=== PATIENT | male | born 1955 | race African-American/Black ===

== ENCOUNTER 2019-08-23 16:52 | Emergency (ER) | payer OTHER ==
[2019-08-23] MEDS ORDERED: Ketorolac Tromethamine 30 MG/ML VIAL ONE (19:08)
--- NOTE | 2019-08-23 19:09 | CT ---
CT CERVICAL SPINE WITH CORONAL AND SAGITTAL REFORMATIONS AND NO IV CONTRAST: HISTORY: Fall, neck pain FINDINGS: No fracture, subluxation or facet malalignment is identified. No prevertebral soft tissue swelling is apparent. The visualized lung apices are unremarkable. IMPRESSION: No CT evidence for fracture or traumatic subluxation.
--- NOTE | 2019-08-23 19:56 | RAD ---
CHEST ONE VIEW: 08/23/19 at 8:03 p.m. HISTORY: Fall. No loss of consciousness. Chest pain FINDINGS: The heart size is normal. The aorta is tortuous. The lungs are well expanded without lobar consolidat ion, pneumothoraces, or pleural effusions. IMPRESSION: No radiographic evidence of acute cardiopulmonary process. POS: OFF
--- NOTE | 2019-08-23 19:57 | RAD ---
LEFT KNEE FOUR VIEWS: 08/23/19 HISTORY: Fall. Left knee pain. FINDINGS/IMPRESSION: No acute fracture or dislocation is seen. POS: OFF
--- NOTE | 2019-08-23 19:58 | RAD ---
LEFT SHOULDER THREE VIEWS: 08/23/19 HISTORY: Fall, left shoulder pain. FINDINGS/IMPRESSION: No acute fracture or dislocation is identified. POS: OFF
--- NOTE | 2019-08-23 19:58 | RAD ---
RIGHT KNEE FOUR VIEWS: 08/23/19 HISTORY: Fall, right knee pain. FINDINGS/IMPRESSION: No acute fracture or dislocation is identified. POS: OFF
[2019-08-23] MEDS ORDERED: Cyclobenzaprine 10 MG TAB ONE (20:04)
== END 2019-08-23 20:18 | disposition home or self-care (01) ==
LOC: ERS 16:52
DX: S16.1XXA Strain of muscle, fascia and tendon at neck level, initial encounter (principal); M25.512 Pain in left shoulder; I10 Essential (primary) hypertension; W18.30XA Fall on same level, unspecified, initial encounter
CPT/HCPCS: 71045; 72125; 96372; J1885

== ENCOUNTER 2022-03-10 10:20 | Outpatient (CLI) | payer MEDICARE, OTHER | END 2022-03-10 10:21 | disposition home or self-care (01) | LOC: BICULT 10:20 | PROVIDERS: ATTEND Physician Assistant Medical | DX: B19.20 Unspecified viral hepatitis C without hepatic coma (principal); K76.89 Other specified diseases of liver; K82.4 Cholesterolosis of gallbladder; I31.3 Pericardial effusion (noninflammatory) | CPT/HCPCS: 76705 ==

== ENCOUNTER 2022-08-26 10:12 | Outpatient (CLI) | payer MEDICARE, OTHER | END 2022-08-26 10:13 | disposition home or self-care (01) | LOC: BICULT 10:12 | PROVIDERS: ATTEND Physician Assistant Medical | DX: K74.60 Unspecified cirrhosis of liver (principal) | CPT/HCPCS: 76705 ==

== ENCOUNTER 2022-10-24 14:05 | Inpatient (IN) | payer MEDICARE, OTHER ==
[2022-10-24 15:25] LABS: #Basophils 0.1 thou/uL (0.0-0.2); #Eosinphils 0.2 thou/uL (0.0-0.7); #Lymphocytes 3.4 thou/uL (1.20-3.40); #Monocytes 0.5 thou/uL (0.11-0.59); #Neutrophils 3.2 thou/uL (1.40-6.50); %Basophils 0.8 % (0.0-1.0); %Eosinophils 2.2 % (0.0-10.0); %Lymphocytes 46.5 % (21.0-51.0); %Monocytes 7.3 % (0.0-10.0); %Neutrophils 43.2 % (42.0-75.0); Hemoglobin 13.5 g/dL (14.0-18.0); Mean Corpuscular HGB CONC 33.5 g/dL (32.0-36.0); Mean Corpuscular Hemoglobin 28.6 pg (27.0-31.0); Mean Corpuscular Volume 85.3 fl (78.0-98.0); Mean Platelet Volume 10.5 fL (7.4-10.4); Platelet Count 132 10x3/uL (130-400); RBC Distribution Width 11.8 % (11.5-14.5); Red Blood Cell (RBC) Count 4.71 mill/uL (4.70-6.10); White Blood Cell (WBC) Count 7.3 10x3/uL (4.8-10.8)
[2022-10-24] MEDS ORDERED: Iopamidol-370 76% 500 ML 1 ML ONE (15:25)
[2022-10-24 15:45] LABS: ALT (SGPT) 12 U/L (8-55); AST (SGOT) 34 U/L (5-34); Albumin 4.3 g/dL (3.4-4.8); Alkaline Phosphatase 82 U/L (40-110); Anion Gap 15 mmol/L (10-20); BUN (Urea Nitrogen) 14 mg/dL (8.4-25.7); Bilirubin, Total 0.5 mg/dL (0.2-1.2); Calc. Creatinine Clearance 0 mL/min (70-130); Calcium 9.2 mg/dL (7.8-10.44); Carbon Dioxide 24 mmol/L (23-31); Chloride 102 mmol/L (98-107); Estimated GFR 70; Globulin 4.4 g/dL (2.4-3.5); Glucose 97 mg/dL (80-115); Potassium 3.6 mmol/L (3.5-5.1); Protein, Total 8.7 g/dL (5.8-8.1); Sodium 137 mmol/L (136-145)
[2022-10-24 15:55] LABS: Platelet Morphology Comment Appears Adequate; RBC Morphology Normal
[2022-10-24 16:12] LABS: CKMB 11.3 ng/mL (0-6.6)
[2022-10-24] MEDS ORDERED: Acetaminophen 500 MG TAB ONE (17:23)
[2022-10-24] MEDS ORDERED: Aspirin Chewable 81 MG TAB ONE (18:47)
[2022-10-24 19:33] LABS: Critical Call Chem Troponin I RESULT DECREASING
[2022-10-24 19:51] LABS: CKMB 10.2 ng/mL (0-6.6)
[2022-10-24 21:21] VITALS: BMI 22.7
[2022-10-24] MEDS: Atorvastatin Calcium 40 MG TAB PO SCH (22:05)
[2022-10-24 22:40] LABS: Critical Call Chem Troponin I RESULT DECREASING
[2022-10-25 05:09] LABS: #Basophils 0.1 thou/uL (0.0-0.2); #Eosinphils 0.2 thou/uL (0.0-0.7); #Lymphocytes 3.5 thou/uL (1.20-3.40); #Monocytes 0.5 thou/uL (0.11-0.59); #Neutrophils 2.7 thou/uL (1.40-6.50); %Basophils 1.9 % (0.0-1.0); %Eosinophils 3.2 % (0.0-10.0); %Lymphocytes 49.4 % (21.0-51.0); %Monocytes 7.5 % (0.0-10.0); %Neutrophils 38.2 % (42.0-75.0); Hemoglobin 12.7 g/dL (14.0-18.0); Mean Corpuscular HGB CONC 33.3 g/dL (32.0-36.0); Mean Corpuscular Hemoglobin 28.4 pg (27.0-31.0); Mean Corpuscular Volume 85.3 fl (78.0-98.0); Mean Platelet Volume 10.7 fL (7.4-10.4); Platelet Count 137 10x3/uL (130-400); RBC Distribution Width 11.8 % (11.5-14.5); Red Blood Cell (RBC) Count 4.47 mill/uL (4.70-6.10); White Blood Cell (WBC) Count 7.1 10x3/uL (4.8-10.8)
[2022-10-25 05:26] LABS: Anion Gap 11 mmol/L (10-20); BUN (Urea Nitrogen) 13 mg/dL (8.4-25.7); Calc. Creatinine Clearance 73 mL/min (70-130); Calcium 8.7 mg/dL (7.8-10.44); Carbon Dioxide 25 mmol/L (23-31); Chloride 107 mmol/L (98-107); Estimated GFR 86; Glucose 94 mg/dL (80-115); Potassium 3.3 mmol/L (3.5-5.1); Sodium 140 mmol/L (136-145)
[2022-10-25] MEDS ORDERED: Lactated Ringer's 1,000 ML IV SCH (08:15)
[2022-10-25] MEDS: NIFEdipine XL 90 MG TAB PO SCH (09:04)
[2022-10-25] MEDS: Aspirin 81 mg Enteric Coated Tablet PO SCH (09:04)
[2022-10-25] MEDS ORDERED: Magnevist 469MG/ML 20 ML VIAL ONE (15:50)
[2022-10-25] MEDS: Atorvastatin Calcium 40 MG TAB PO SCH (20:48)
[2022-10-26 05:20] LABS: Mean Corpuscular HGB CONC 33.8 g/dL (32.0-36.0); Mean Corpuscular Hemoglobin 29.1 pg (27.0-31.0); Mean Corpuscular Volume 86.1 fl (78.0-98.0); Mean Platelet Volume 10.5 fL (7.4-10.4); Platelet Count 124 10x3/uL (130-400); RBC Distribution Width 11.8 % (11.5-14.5); Red Blood Cell (RBC) Count 4.14 mill/uL (4.70-6.10); White Blood Cell (WBC) Count 7.1 10x3/uL (4.8-10.8)
[2022-10-26 05:28] LABS: Hemoglobin A1c 5.4 % (4.0-6.0)
[2022-10-26 05:31] LABS: ALT (SGPT) 11 U/L (8-55); AST (SGOT) 22 U/L (5-34); Albumin 3.9 g/dL (3.4-4.8); Alkaline Phosphatase 67 U/L (40-110); Anion Gap 9 mmol/L (10-20); BUN (Urea Nitrogen) 14 mg/dL (8.4-25.7); Bilirubin, Total 0.6 mg/dL (0.2-1.2); Calc. Creatinine Clearance 67 mL/min (70-130); Calcium 8.5 mg/dL (7.8-10.44); Carbon Dioxide 26 mmol/L (23-31); Cardiac Risk 6.1 (Less than 4.5); Chloride 106 mmol/L (98-107); Cholesterol 230 mg/dl (< 200 Desired); Estimated GFR 77; Globulin 3.7 g/dL (2.4-3.5); Glucose 94 mg/dL (80-115); HDL Cholesterol 38 mg/dL (>60 Neg Risk); LDL Cholesterol, Calculated 172 mg/dL; Potassium 3.3 mmol/L (3.5-5.1); Protein, Total 7.6 g/dL (5.8-8.1); Sodium 138 mmol/L (136-145); Triglycerides 102 mg/dL (Less than 150)
[2022-10-26 06:07] LABS: Eosinophils 2 % (0-10); Lymphocytes 67 % (21-51); MDiff Complete? YES; Monocytes 8 % (0-10); Neutrophil 23 % (42-75)
[2022-10-26] MEDS: Aspirin 81 mg Enteric Coated Tablet PO SCH (08:39)
[2022-10-26] MEDS: NIFEdipine XL 90 MG TAB PO SCH (08:39)
[2022-10-26] MEDS: Atorvastatin Calcium 40 MG TAB PO SCH (20:43)
[2022-10-27] MEDS ORDERED: Nitroglycerin 100MG/250ML BOT 0 ML ONE (06:49)
[2022-10-27] MEDS ORDERED: Verapamil 5 MG/2 ML VIAL ONE (06:49)
[2022-10-27] MEDS ORDERED: Heparin 10,000 UNITS/ 10 ML VIAL ONE (06:49)
[2022-10-27] MEDS ORDERED: Lidocaine 1% PF 5 ML VIAL ONE (06:49)
[2022-10-27 08:33] LABS: Hemoglobin 12.8 g/dL (14.0-18.0); Mean Corpuscular HGB CONC 34.5 g/dL (32.0-36.0); Mean Platelet Volume 10.5 fL (7.4-10.4); Platelet Count 132 10x3/uL (130-400); RBC Distribution Width 11.9 % (11.5-14.5); Red Blood Cell (RBC) Count 4.27 mill/uL (4.70-6.10); White Blood Cell (WBC) Count 5.5 10x3/uL (4.8-10.8)
[2022-10-27 08:36] LABS: Anion Gap 14 mmol/L (10-20); BUN (Urea Nitrogen) 15 mg/dL (8.4-25.7); Calc. Creatinine Clearance 71 mL/min (70-130); Calcium 8.9 mg/dL (7.8-10.44); Carbon Dioxide 23 mmol/L (23-31); Chloride 105 mmol/L (98-107); Estimated GFR 83; Glucose 90 mg/dL (80-115); Potassium 3.7 mmol/L (3.5-5.1); Sodium 138 mmol/L (136-145)
[2022-10-27] MEDS: NIFEdipine XL 60 MG TAB PO SCH (09:12)
[2022-10-27] MEDS: Aspirin 81 mg Enteric Coated Tablet PO SCH (09:12)
[2022-10-27 09:23] LABS: Band 1 % (5-11); Eosinophils 4 % (0-10); Lymphocytes 56 % (21-51); MDiff Complete? YES; Monocytes 7 % (0-10); Neutrophil 31 % (42-75); Platelet Morphology Comment Appears Adequate; Polychromasia SLIGHT = 2-3 cells (100X) (0-2/hpf); RBC Morphology Normal
[2022-10-27 17:18] LABS: Free T4 (Free Thyroxine) 1.05 ng/dL (0.70-1.48)
[2022-10-27 17:27] LABS: Thyroid Stimulating Hormone 1.3652 uIU/mL (0.35-4.94)
[2022-10-27] MEDS: Atorvastatin Calcium 40 MG TAB PO SCH (19:55)
[2022-10-28 05:28] LABS: Anion Gap 12 mmol/L (10-20); BUN (Urea Nitrogen) 15 mg/dL (8.4-25.7); Calc. Creatinine Clearance 71 mL/min (70-130); Calcium 8.8 mg/dL (7.8-10.44); Carbon Dioxide 23 mmol/L (23-31); Chloride 107 mmol/L (98-107); Estimated GFR 82; Glucose 93 mg/dL (80-115); Potassium 3.5 mmol/L (3.5-5.1); Sodium 138 mmol/L (136-145)
[2022-10-28 05:34] LABS: Hemoglobin 12.2 g/dL (14.0-18.0); Mean Corpuscular HGB CONC 33.6 g/dL (32.0-36.0); Mean Corpuscular Hemoglobin 28.8 pg (27.0-31.0); Mean Corpuscular Volume 85.7 fl (78.0-98.0); Mean Platelet Volume 10.4 fL (7.4-10.4); Platelet Count 118 10x3/uL (130-400); RBC Distribution Width 11.7 % (11.5-14.5); Red Blood Cell (RBC) Count 4.22 mill/uL (4.70-6.10); White Blood Cell (WBC) Count 6.4 10x3/uL (4.8-10.8)
[2022-10-28 05:35] LABS: Eosinophils 2 % (0-10); Large Platelets SLIGHT; Lymphocytes 50 % (21-51); MDiff Complete? YES; Monocytes 9 % (0-10); Neutrophil 37 % (42-75); Platelet Morphology Comment Appears Decreased; Reactive Lymphocytes 2 % (0-10)
[2022-10-28] MEDS: NIFEdipine XL 60 MG TAB PO SCH (06:09)
[2022-10-28] MEDS ORDERED: Heparin 10,000 UNITS/ 10 ML VIAL ONE (06:10)
[2022-10-28] MEDS ORDERED: Lidocaine 1% PF 5 ML VIAL ONE (06:10)
[2022-10-28] MEDS ORDERED: Nitroglycerin 100MG/250ML BOT 250 ML ONE (06:10)
[2022-10-28] MEDS ORDERED: Verapamil 5 MG/2 ML VIAL ONE (06:10)
[2022-10-28] MEDS ORDERED: Communication Order-Pharmacy FS SCH (06:45)
[2022-10-28] MEDS ORDERED: Sodium Chloride 0.9% 1,000 ML IV SCH ×2 (06:45→08:00)
[2022-10-28] MEDS ORDERED: Midazolam HCl 2 mg/2 ml Vial ONE (06:54)
[2022-10-28] MEDS ORDERED: FENTANYL 50 MCG/ML 1 ML VIAL ONE (06:54)
[2022-10-28] MEDS ORDERED: Nitroglycerin 0.4 MG TAB (25 Tab Bottle) SL PRN (07:46)
[2022-10-28] MEDS ORDERED: Sodium Chloride 0.9% 200 ML IV PRN (07:46)
[2022-10-28] MEDS ORDERED: Acetaminophen/Codeine 30-300mg Tablet PO PRN ×2 (07:46)
[2022-10-28] MEDS ORDERED: Aspirin 325 mg Enteric Coated Tablet PO SCH (09:00)
[2022-10-28 10:57] LABS: Follicle Stimulating Hormone 3.78 mIU/mL (See Ranges); Luteinizing Hormone 1.97 mIU/mL (See Ranges)
[2022-10-28 11:49] VITALS: BP 121/73; TEMP 98.2
[2022-10-28] MEDS ORDERED: Potassium Chloride 20 MEQ TAB PO SCH (13:30)
== END 2022-10-28 14:52 | disposition home or self-care (01) | DRG 643 ==
LOC: ERS 14:05 → 2SW 18:46
PROVIDERS: ADMIT Family Medicine; ATTEND Internal Medicine
PROC: B2111ZZ Fluoroscopy of Multiple Coronary Arteries using Low Osmolar Contrast (ICD-10-PCS; principal; 2022-10-28)
DX: D35.2 Benign neoplasm of pituitary gland (principal); G93.5 Compression of brain; I21.A1 Myocardial infarction type 2; Z20.822 Contact with and (suspected) exposure to COVID-19; E78.00 Pure hypercholesterolemia, unspecified; I12.9 Hypertensive chronic kidney disease with stage 1 through stage 4 chronic kidney disease, or unspecified chronic kidney disease; N18.2 Chronic kidney disease, stage 2 (mild); D69.6 Thrombocytopenia, unspecified; D53.9 Nutritional anemia, unspecified; E87.6 Hypokalemia; Z79.899 Other long term (current) drug therapy
CPT/HCPCS: 36415; 70450; 70553; 71045; 71275; 72125; 74174; 80048; 80053; 80061; 82024; 82553; 83001; 83002; 83003; 83036; 83735; 84146; 84305; 84439; 84443; 84484; 85025; 93005; 93306; 93880; 94760; 96360; 96361; 96372; A9579; C1769; C1894; J1644; J1650; J2250; J3010; J7050; J7120; Q9967; U0003; U0005

== ENCOUNTER 2022-11-27 14:20 | Outpatient (CLI) | payer MEDICARE, OTHER | END 2022-11-27 14:21 | disposition home or self-care (01) | LOC: CT 14:20 | PROVIDERS: ATTEND Neurological Surgery | DX: D35.2 Benign neoplasm of pituitary gland (principal); Z87.81 Personal history of (healed) traumatic fracture | CPT/HCPCS: 70486; 71046; 93005; 93010 ==

== ENCOUNTER 2022-12-20 20:21 | Inpatient (IN) | payer MEDICARE, OTHER ==
[2022-12-20 21:22] LABS: #Basophils 0.1 thou/uL (0.0-0.2); #Lymphocytes 1.7 thou/uL (1.20-3.40); #Monocytes 0.6 thou/uL (0.11-0.59); #Neutrophils 6.6 thou/uL (1.40-6.50); %Basophils 0.6 % (0.0-1.0); %Eosinophils 0.2 % (0.0-10.0); %Lymphocytes 19.1 % (21.0-51.0); %Monocytes 6.3 % (0.0-10.0); %Neutrophils 73.9 % (42.0-75.0); Hemoglobin 12.1 g/dL (14.0-18.0); Mean Corpuscular HGB CONC 33.7 g/dL (32.0-36.0); Mean Corpuscular Hemoglobin 30.3 pg (27.0-31.0); Mean Corpuscular Volume 90.1 fl (78.0-98.0); Mean Platelet Volume 9.8 fL (7.4-10.4); Platelet Count 180 10x3/uL (130-400); RBC Distribution Width 13.1 % (11.5-14.5); White Blood Cell (WBC) Count 8.9 10x3/uL (4.8-10.8)
[2022-12-20] MEDS ORDERED: Metoclopramide HCl 10 MG TAB ONE (21:36)
[2022-12-20 21:46] LABS: ALT (SGPT) 33 U/L (8-55); AST (SGOT) 22 U/L (5-34); Albumin 4.5 g/dL (3.4-4.8); Alkaline Phosphatase 78 U/L (40-110); Anion Gap 15 mmol/L (10-20); BUN (Urea Nitrogen) 18 mg/dL (8.4-25.7); Bilirubin, Total 0.6 mg/dL (0.2-1.2); Calc. Creatinine Clearance 0 mL/min (70-130); Calcium 8.6 mg/dL (7.8-10.44); Carbon Dioxide 25 mmol/L (23-31); Chloride 103 mmol/L (98-107); Estimated GFR 54; Globulin 3.7 g/dL (2.4-3.5); Glucose 129 mg/dL (80-115); Potassium 4.1 mmol/L (3.5-5.1); Protein, Total 8.2 g/dL (5.8-8.1); Sodium 139 mmol/L (136-145)
[2022-12-21 02:36] LABS: Bilirubin Negative (Negative); Blood, Urine Negative (Negative); Clarity Clear (Clear); Glucose, Urine (Dipstick) Normal (Negative); Ketone, Urine Negative (Negative); Leukocyte Negative Leu/uL (Negative); Nitrite Negative (Negative); Protein, Urine (Dipstick) 20 mg/dL (Neg-Trace); Specific Gravity, Urine 1.019 (1.002-1.036); Urobilinogen Normal mg/dL (Less than 2)
[2022-12-21] MEDS ORDERED: Ondansetron ODT 4 MG TAB SL PRN (03:45)
[2022-12-21] MEDS ORDERED: Acetaminophen 325 MG TAB PO PRN (03:45)
[2022-12-21] MEDS ORDERED: Ondansetron PF 4 MG/2 ML Vial IVP PRN ×2 (03:45→08:51)
[2022-12-21] MEDS ORDERED: Acetaminophen 325 MG TAB ONE (07:13)
[2022-12-21] MEDS: Sodium Chloride 0.9% 1,000 ML IV SCH ×3 (08:34→21:31)
[2022-12-21] MEDS ORDERED: HYDROcodone/Acetaminophen 5/325 mg Tablet PO PRN ×2 (08:51)
[2022-12-21] MEDS ORDERED: Cefepime 1 GM in Sodium Chloride 0.9% 100 ML IVPB SCH (09:30)
[2022-12-21] MEDS ORDERED: Amlodipine 5 MG TAB PO SCH (09:30)
[2022-12-21] MEDS ORDERED: Cefepime 2 GM VIAL ONE (10:22)
[2022-12-21] MEDS ORDERED: Vancomycin 1 GM/200 ML (FROZEN) BAG ONE (10:22)
[2022-12-21] MEDS ORDERED: Cefepime 1 GM VIAL ONE (10:29)
[2022-12-21 10:42] LABS: Bacteria/HPF None Seen HPF (None Seen); Bilirubin Negative (Negative); Blood, Urine Negative (Negative); CAUTI Indications for Culture Fever or rigors; Clarity Clear (Clear); Glucose, Urine (Dipstick) Normal (Negative); Ketone, Urine Negative (Negative); Leukocyte Negative Leu/uL (Negative); Nitrite Negative (Negative); Protein, Urine (Dipstick) 20 mg/dL (Neg-Trace); RBC/HPF 0-3 HPF (0-3); Squamous Epithelial 0-3 HPF (0-3); Urobilinogen Normal mg/dL (Less than 2); WBC/HPF 0-3 HPF (0-3)
[2022-12-21 10:43] LABS: Urine Culture Reflex No No
[2022-12-21] MEDS ORDERED: Magnevist 469MG/ML 20 ML VIAL ONE (11:26)
[2022-12-21] MEDS: Vancomycin 1 GM in Premix Bag 1 BAG IVPB SCH (11:31)
[2022-12-21] MEDS ORDERED: Sodium Chloride 0.9% 500 ML IV SCH (12:15)
[2022-12-21 18:21] VITALS: BMI 24.8
[2022-12-21] MEDS: Cefepime 1 GM in Sodium Chloride 0.9% 100 ML IVPB SCH (21:29)
[2022-12-22] MEDS: Sodium Chloride 0.9% 1,000 ML IV SCH ×3 (00:02→15:09)
[2022-12-22 05:09] LABS: #Basophils 0.1 thou/uL (0.0-0.2); #Eosinphils 0.1 thou/uL (0.0-0.7); #Lymphocytes 4.1 thou/uL (1.20-3.40); #Monocytes 0.7 thou/uL (0.11-0.59); #Neutrophils 3.9 thou/uL (1.40-6.50); %Basophils 0.9 % (0.0-1.0); %Eosinophils 1.1 % (0.0-10.0); %Lymphocytes 46.4 % (21.0-51.0); %Monocytes 8.1 % (0.0-10.0); %Neutrophils 43.7 % (42.0-75.0); Hemoglobin 11.2 g/dL (14.0-18.0); Mean Corpuscular HGB CONC 31.4 g/dL (32.0-36.0); Mean Corpuscular Hemoglobin 28.5 pg (27.0-31.0); Mean Corpuscular Volume 90.8 fl (78.0-98.0); Mean Platelet Volume 9.5 fL (7.4-10.4); Platelet Count 160 10x3/uL (130-400); RBC Distribution Width 12.8 % (11.5-14.5); Red Blood Cell (RBC) Count 3.94 mill/uL (4.70-6.10); White Blood Cell (WBC) Count 8.9 10x3/uL (4.8-10.8)
[2022-12-22 05:27] LABS: Anion Gap 16 mmol/L (10-20); BUN (Urea Nitrogen) 17 mg/dL (8.4-25.7); Calc. Creatinine Clearance 59 mL/min (70-130); Calcium 8.4 mg/dL (7.8-10.44); Carbon Dioxide 18 mmol/L (23-31); Chloride 107 mmol/L (98-107); Estimated GFR 66; Glucose 83 mg/dL (80-115); Potassium 3.7 mmol/L (3.5-5.1); Sodium 137 mmol/L (136-145)
[2022-12-22] MEDS ORDERED: Amlodipine 5 MG TAB PO SCH (09:00)
[2022-12-22] MEDS: Cefepime 1 GM in Sodium Chloride 0.9% 100 ML IVPB SCH ×2 (10:45→22:17)
[2022-12-22] MEDS: Vancomycin 1 GM in Premix Bag 1 BAG IVPB SCH (14:10)
[2022-12-22] MEDS ORDERED: Vancomycin 1 GM in Premix Bag 1 BAG IVPB SCH (14:15)
[2022-12-22 15:36] LABS: Thyroid Stimulating Hormone 0.1809 uIU/mL (0.35-4.94)
[2022-12-22] MEDS ORDERED: Dexamethasone 4 mg/ml Vial SLOW IVP SCH ×2 (16:00→16:15)
[2022-12-22 16:24] LABS: Free T4 (Free Thyroxine) 0.59 ng/dL (0.70-1.48)
[2022-12-22 16:51] VITALS: BP 100/68
[2022-12-22] MEDS ORDERED: Lactated Ringer's 1,000 ML IV SCH (17:30)
[2022-12-22] MEDS ORDERED: Sodium Bicarbonate 100 MEQ in Dextrose 5% in Water 1,000 ML IV SCH (17:30)
[2022-12-22] MEDS ORDERED: Hydrocortisone Sod Succ/PF 250 mg/2 ml Vial SLOW IVP SCH (17:30)
[2022-12-23] MEDS: Sodium Chloride 0.9% 1,000 ML IV SCH ×2 (03:59→19:19)
[2022-12-23] MEDS: Levothyroxine Sodium 50 MCG TAB PO SCH (05:30)
[2022-12-23] MEDS: Hydrocortisone Sod Succ/PF 100 mg/2 ml Vial IVP SCH ×3 (05:30→23:19)
[2022-12-23] MEDS ORDERED: Hydrocortisone Sod Succ/PF 100 mg/2 ml Vial IVP SCH (06:00)
[2022-12-23 07:31] LABS: #Lymphocytes 0.7 thou/uL (1.20-3.40); #Monocytes 0.4 thou/uL (0.11-0.59); #Neutrophils 5.1 thou/uL (1.40-6.50); %Basophils 0.1 % (0.0-1.0); %Eosinophils 0.1 % (0.0-10.0); %Lymphocytes 11.3 % (21.0-51.0); %Monocytes 6.6 % (0.0-10.0); %Neutrophils 81.9 % (42.0-75.0); Hemoglobin 11.1 g/dL (14.0-18.0); Mean Corpuscular HGB CONC 32.3 g/dL (32.0-36.0); Mean Corpuscular Hemoglobin 29.1 pg (27.0-31.0); Mean Corpuscular Volume 89.9 fl (78.0-98.0); Mean Platelet Volume 9.7 fL (7.4-10.4); Platelet Count 170 10x3/uL (130-400); RBC Distribution Width 12.4 % (11.5-14.5); Red Blood Cell (RBC) Count 3.83 mill/uL (4.70-6.10); White Blood Cell (WBC) Count 6.2 10x3/uL (4.8-10.8)
[2022-12-23 07:49] LABS: Anion Gap 11 mmol/L (10-20); BUN (Urea Nitrogen) 24 mg/dL (8.4-25.7); Calc. Creatinine Clearance 52 mL/min (70-130); Carbon Dioxide 27 mmol/L (23-31); Chloride 103 mmol/L (98-107); Estimated GFR 57; Glucose 124 mg/dL (80-115); Potassium 4.2 mmol/L (3.5-5.1); Sodium 137 mmol/L (136-145)
[2022-12-23 07:53] LABS: Troponin I Less than 0.010 ng/mL (< 0.028)
[2022-12-23] MEDS: Cefepime 1 GM in Sodium Chloride 0.9% 100 ML IVPB SCH (09:23)
[2022-12-23] MEDS ORDERED: Vancomycin 1 GM in Premix Bag 1 BAG IVPB SCH (12:00)
[2022-12-23] MEDS ORDERED: Levothyroxine Sodium 50 MCG TAB PO SCH (21:00)
[2022-12-24] MEDS: Sodium Chloride 0.9% 1,000 ML IV SCH (04:15)
[2022-12-24] MEDS: Levothyroxine Sodium 50 MCG TAB PO SCH (05:54)
[2022-12-24] MEDS ORDERED: Hydrocortisone Sod Succ/PF 100 mg/2 ml Vial IVP SCH (06:00)
[2022-12-24 06:10] LABS: Anion Gap 14 mmol/L (10-20); BUN (Urea Nitrogen) 22 mg/dL (8.4-25.7); Calc. Creatinine Clearance 56 mL/min (70-130); Calcium 8.7 mg/dL (7.8-10.44); Carbon Dioxide 23 mmol/L (23-31); Chloride 110 mmol/L (98-107); Estimated GFR 62; Glucose 115 mg/dL (80-115); Potassium 3.7 mmol/L (3.5-5.1); Sodium 143 mmol/L (136-145)
[2022-12-24 06:16] LABS: Troponin I Less than 0.010 ng/mL (< 0.028)
[2022-12-24 06:19] LABS: #Lymphocytes 1.1 thou/uL (1.20-3.40); #Monocytes 0.4 thou/uL (0.11-0.59); #Neutrophils 9.6 thou/uL (1.40-6.50); %Basophils 0.1 % (0.0-1.0); %Eosinophils 0.1 % (0.0-10.0); %Lymphocytes 9.5 % (21.0-51.0); %Monocytes 3.1 % (0.0-10.0); %Neutrophils 87.2 % (42.0-75.0); Hemoglobin 10.6 g/dL (14.0-18.0); Mean Corpuscular HGB CONC 32.9 g/dL (32.0-36.0); Mean Corpuscular Hemoglobin 29.5 pg (27.0-31.0); Mean Corpuscular Volume 89.7 fl (78.0-98.0); Mean Platelet Volume 10.1 fL (7.4-10.4); Platelet Count 154 10x3/uL (130-400); RBC Distribution Width 12.8 % (11.5-14.5)
[2022-12-24 12:22] VITALS: TEMP 98.5
[2022-12-25] MEDS ORDERED: Hydrocortisone Sod Succ/PF 100 mg/2 ml Vial IVP SCH (09:00)
[2022-12-26] MEDS ORDERED: Hydrocortisone 10 mg Tablet PO SCH ×2 (09:00→21:00)
== END 2022-12-24 16:25 | disposition home or self-care (01) | DRG 644 ==
LOC: ERS 20:21 → ERHOLD 12-21 02:10 → OBSVTOIN 12-21 13:11 → NEURO 12-21 17:31 → IMCU/EMU 12-22 17:03
PROVIDERS: ADMIT Internal Medicine; ATTEND Hospitalist
DX: E89.3 Postprocedural hypopituitarism (principal); E27.49 Other adrenocortical insufficiency; I10 Essential (primary) hypertension; E78.00 Pure hypercholesterolemia, unspecified; I44.1 Atrioventricular block, second degree; I95.9 Hypotension, unspecified; Z79.899 Other long term (current) drug therapy
CPT/HCPCS: 36415; 70450; 70553; 71045; 80048; 80053; 81003; 82024; 82533; 84439; 84443; 84484; 85025; 87040; 93005; 93010; 93306; 96374; 96375; A9579; G0378; J0692; J1100; J1650; J1720; J3370-JW; J3372; J3490; J7030; J7050; J7070; J7120; U0003; U0005

== ENCOUNTER 2023-03-17 08:04 | Outpatient (CLI) | payer MEDICARE, OTHER | END 2023-03-17 08:05 | disposition home or self-care (01) | LOC: BICULT 08:04 | PROVIDERS: ATTEND Physician Assistant Medical | DX: K74.60 Unspecified cirrhosis of liver (principal) | CPT/HCPCS: 76705 ==